=== PATIENT | female | born 2000 | race Two or more races ===

== ENCOUNTER 2024-12-28 19:58 | Emergency (ER) | payer OTHER ==
[~2024-12-28] VITALS: Ht 172.7 cm; Wt 56.8 kg
[2024-12-28] MEDS ORDERED: MORPHINE SULFATE INJ 2 MG/ml SYRG IM ONE (21:00)
[2024-12-28 21:28] LABS: Urine Bacteria None Seen /hpf (None Seen)
[2024-12-28 21:44] LABS: Basophils # (auto) 0 10 ^3/uL (0-0.2); Basophils % (auto) 0.3 % (0.0-2.0); Eosinophils # (auto) 0.1 10 ^3/uL (0-0.8); Eosinophils % (auto) 1.5 % (0.0-7.0); Hematocrit 43.7 % (36.0-46.0); Hemoglobin 14.9 g/dL (12.2-16.2); Lymphocytes % (auto) 33.2 % (10.0-50.0); Mean Corpuscular Hemoglobin 29.5 pg (28.0-32.0); Mean Corpuscular Hgb Conc. 34.1 g/dL (32.0-36.0); Mean Corpuscular Volume 86.3 fL (80.0-100.0); Monocytes # (auto) 0.6 10 ^3/uL (0-1.3); Monocytes % (auto) 6.4 % (0.0-12.0); Neutrophils # (auto) 5.3 10 ^3/uL (1.6-8.6); Neutrophils % (auto) 58.6 % (37.0-80.0); Nucleated Red Blood Cells % 0.1 %; Platelet Count (auto) 330 10^3/uL (140-450); Red Blood Cells 5.07 10^6/uL (4.0-5.20); Red Cell Distribution Width 12.9 % (11.8-14.3); White Blood Cell 9.1 10^3/uL (4.4-10.8)
[2024-12-28 21:51] LABS: Urine Amorphous Crystal FEW /hpf (None Seen); Urine Blood 3+ /uL (Negative); Urine Clarity Turbid (Clear); Urine Color Light-Orange (Yellow); Urine Mucus FEW (None Seen); Urine Protein, UAD TRACE (Negative); Urine Specific Gravity 1.026 (1.001-1.035); Urine Squamous Epithelial Cell FEW /hpf (<5); Urine Urobilinogen Normal (Negative); Urine WBC 11 /HPF (0-5)
[2024-12-28 22:02] LABS: Alanine Aminotransferase 10 U/L (7-40); Albumin 4.6 g/dL (3.2-4.8); Alkaline Phosphatase 48 U/L (46-116); Anion Gap 8 (5-15); Aspartate Aminotransferase 15 U/L (13-40); BUN/Creatinine Ratio 15.1 (10.0-20.0); Bilirubin, Total 0.5 mg/dL (0.2-1.0); Blood Urea Nitrogen 13 mg/dL (9-23); Calcium 9.8 mg/dL (8.7-10.4); Carbon Dioxide 26 mmol/L (20-31); Chloride 106 mmol/L (98-107); Glucose 92 mg/dL (74-106); Lipase 42 U/L (12-53); Potassium 3.5 mmol/L (3.5-5.1); Sodium 140 mmol/L (136-145); Total Protein 7.5 g/dL (5.7-8.2)
--- NOTE | 2024-12-28 22:10 | ED.PDOC ---
History of Present Illness HPI Comments Ms. Steele, a 24-year-old female past medical history significant for left inguinal hernia repair, otherwise unremarkable medical history, chronic irregular menstruation came from home with a new onset of midline pelvic pain, 7/10, dull, intermittent associated with blood clots for past 2-3 days. She went to [place] urgent care where urine and blood test -ve she was prompted to ED for further evaluation of pelvic exam. She is sexually active with can you 1 mL partner with last sexual activity in 5 days, but the pain seems unassociated with the sexual activities. She denies hitting history of pelvic trauma, fever, chills, pelvic discharge, STD, or any other gynecologic/OBEGYN complications. She tried over the counter pain medications with partial relief. Chief Complaint: Pelvic Pain Time Seen by MD: 20:01 Primary Care Provider: BEBE Reviewed Notes: Nurses Notes, Medications, Allergies Allergies: Coded Allergies: NO KNOWN ALLERGIES (Unverified , 12/28/24) Information Source: Patient Mode of Arrival: Ambulatory Severity: Mild Timing: Days Duration: Since onset, Intermittent Prehospital treatment: Pain Meds Location: Midline pelvic Quality dull, cramping Past Medical History Past Medical History (Other): As above Surgical History (Other): As above TALENT ACQUISITION SOURCER History: Denies all TALENT ACQUISITION SOURCER Hx, No Pertinent TALENT ACQUISITION SOURCER History AB no prior , irregular periods 2-3 months, last in October Family History Family History: Reviewed,noncontributory to illness Social History Smoker: Non-Smoker Alcohol: Denies ETOH Use Drugs: Denies Drug Use Lives In: Home Constitutional: denies: chills, diaphoresis, fatigue, fever, malaise, sweats, weakness, others EENTM: denies: blurred vision, double vision, ear bleeding, ear discharge, ear drainage, ear pain, ear ringing, eye pain, eye redness, hearing loss, mouth pain, mouth swelling, nasal discharge, nose bleeding, nose congestion, nose pain, photophobia, tearing, throat pain, throat swelling, voice changes, others Respiratory: denies: cough, hemoptysis, orthopnea, SOB at rest, shortness of breath, SOB with excertion, stridor, wheezing, others Cardiovascular: denies: chest pain, dizzy spells, diaphoresis, Dyspnea on exertion, edema, irregular heart beat, left arm pain, lightheadedness, palpi tations, PND, syncope, others Gastrointestinal: denies: abdomen distended, abdominal pain, blood streaked bowels, constipated, diarrhea, dysphagia, difficulty swallowing, hematemesis, melena, nausea, poor appetite, poor fluid intake, rectal bleeding, rectal pain, vomiting, others Genitourinary: reports: abnormal vagina bleeding, flank pain, pain, vagina discharge; denies: burning, dyspareunia, dysuria, frequency, hematuria, incontinence, , urgency, others Neurological: denies: dizziness, fainting, headache, left sided numbness, left sided weakness, numbness, paresthesia, pre-existing deficit, right sided numbness, right sided weakness, seizure, speech problems, tingling, tremors, weakness, others Musculoskeletal: denies: back pain, gout, joint pain, joint swelling, muscle pain, muscle stiffness, neck pain, others Integumetry: denies: bruises, change in color, change in hair/nails, dryness, laceration, lesions, lumps, rash, wounds, others Allergic/Immunocompromised: denies: Difficulty Healing, Frequent Infections, Hives, Itching, others Hematologic/Lymphatic: denies: anemia, blood clots, easy bleeding, easy bruising, swollen glands, others Endocrine: denies: excessive hunger, excessive sweating, excessive thirst, excessive urination, flushing, intolerance to cold, intolerance to heat, unexplained weight gain, unexplained weight loss, others Psychiatric: denies: anxiety, bipolar disorder, depression, hopeless, panic disorder, schizophrenia, sleepless, suicidal, others Physical Exam General Appearance: Mild Distress HEENT: Normal ENT Inspection (piercing ), Other (MultiplePiercing) Neck: Full Range of Motion, Non-Tender, Normal Inspection Respiratory: No Accessory Muscle Use, No Respiratory Distress, Normal Breath Sounds Cardiovascular: No Edema, No Murmur, No Gallop, Normal Peripheral Pulses, Regular Rate/Rhythm Breast Exam: Deferred Gastrointestinal: No Organomegaly, No Pulsatile Mass, Normal Bowel Sounds, Suprapubic, Tenderness Genitalia: Deferred Pelvic: Deferred, Other (We will plan to private with the help of a female tono honorio) Rectal: Deferred Extremities: Non-tender, No pedal edema Neurologic: Alert, No Motor Deficits, Normal Mood, No Sensory Deficits Cerebellar Function: Normal Reflexes: NOT DONE Skin: NOT DONE Lymphatic: NOT DONE Was a procedure done? Was a procedure done?: No Differential Dx Considerations may include: STD, UTI, , pelvic inflammatory disease, menometrorrhagea, ectopic , adnexal normality X-Ray, Labs, Meds, VS Vital Signs Date Time Temp Pulse Resp B/P (MAP) Pulse Ox O2 Delivery O2 Flow Rate FiO2 12/28/24 21:12 98.9 93 18 143/81 (101) 99 98.9 Lab Test 12/28/24 21:25 12/28/24 20:54 Range/Units White Blood Count 9.1 4.4-10.8 10^3/uL Red Blood Count 5.07 4.0-5.20 10^6/uL Hemoglobin 14.9 12.2-16.2 g/dL Hematocrit 43.7 36.0-46.0 % Mean Corpuscular Volume 86.3 80.0-100.0 fL Mean Corpuscular Hemoglobin 29.5 28.0-32.0 pg Mean Corpuscular Hemoglobin Concent 34.1 32.0-36.0 g/dL Red Cell Distribution Width 12.9 11.8-14.3 % Platelet Count 330 140-450 10^3/uL Mean Platelet Volume 8.1 6.9-10.8 fL Neutrophils (%) (Auto) 58.6 37.0-80.0 % Lymphocytes (%) (Auto) 33.2 10.0-50.0 % Monocytes (%) (Auto) 6.4 0.0-12.0 % Eosinophils (%) (Auto) 1.5 0.0-7.0 % Basophils (%) (Auto) 0.3 0.0-2.0 % Neutrophils # (Auto) 5.3 1.6-8.6 10 ^3/uL Lymphocytes # (Auto) 3.0 0.4-5.4 10 ^3/uL Monocytes # (Auto) 0.6 0-1.3 10 ^3/uL Eosinophils # (Auto) 0.1 0-0.8 10 ^3/uL Basophils # (Auto) 0 0-0.2 10 ^3/uL Nucleated Red Blood Cells 0.1 % Sodium Level Pending Potassium Level Pending Chloride Level Pending Carbon Dioxide Level Pending Anion Gap Pending Blood Urea Nitrogen Pending Creatinine Pending Glomerular Filtration Rate Calc Pending BUN/Creatinine Ratio Pending Serum Glucose Pending Calcium Level Pending Total Bilirubin Pending Aspartate Amino Transferase (AST) Pending Alanine Aminotransferase (ALT) Pending Alkaline Phosphatase Pending Total Protein Pending Albumin Pending Lipase Pending Urine Color Light-orange Yellow Urine Clarity Turbid H Clear Urine pH 8.0 5.0-9.0 Urine Specific Mal[place] 1.026 1.001-1.035 Urine Protein Trace H Negative Urine Ketones Negative Negative Urine Blood 3+ H Negative /uL Urine Nitrite Negative Negative Urine Bilirubin Negative Negative Urine Urobilinogen Normal Negative mg/dL Urine Leukocyte Esterase 1+ Negative /uL Urine RBC 132 0 - 4 /hpf Urine Microscopic WBC 11 H 0-5 /HPF Urine Squamous Epithelial Cells Few <5 /hpf Urine Triple Phosphate Crystals Few None Seen /hpf Urine Amorphous Crystals Few None Seen /hpf Urine Bacteria None seen None Seen /hpf Urine Mucus Few None Seen Urine Glucose Normal Normal mg/dL Urine Test Negative Negative Chlamydia trachomatis (JOAN) Pending Neisseria gonorrhoeae (JOAN) Pending Images Reviewed?: Images reviewed and evaluated by me Time of 1ST Reevaluation: 23:20 Reevaluation 1ST: Unchanged (-ve workup so far, hemodynamically stable, afebrile, HnH stable. ) Time of 2ND Reevaluation: 22:09 Reevaluation 2ND: Unchanged (morphine 1 mg IM, for pain control, -ve. stable discussed with Dr. Madden. Signed out to Dr. Madden. ) Patient Education/Counseling: Diagnosis, Treatment, Prognosis, Need For Follow Up Family Education/Counseling: No Family Present Sepsis Sepsis Reasesment Focused Exam Sepsis focused exam: focus exam completed, time: (negative) Departure 1 Departure Time of Disposition: 22:06 Impression: Primary Impression: STI (sexually transmitted infection) Additional Impressions: Pelvic pain UTI (urinary tract infection) Qualified Codes: N30.00 - Acute cystitis without hematuria Disposition: 30 STILL A PATIENT Condition: Fair Critical Care Note Critical Care Time?: No Stability Stability form required: No Heart Score Heart Score: Heart Score Response (Comments) Value History N/A 0 EKG N/A 0 Age N/A 0 Risk Factors N/A 0 Troponin N/A 0 Total 0 EZE MONZON RESIDENT Dec 28, 2024 22:10
--- NOTE | 2024-12-29 00:08 | DVH ---
BILATERAL RENAL ULTRASOUND CLINICAL HISTORY: CKD. R/O OBSTRUCTION COMPARISON: None TECHNIQUE: High-resolution real-time grayscale and color flow imaging is performed. FINDINGS: Right kidney: Measures 9.6 cm in length. Normal cortical thickness and echotexture. No hydronephrosis . Left kidney: Measures 10.7 cm in length. Normal cortical thickness and echotexture. No hydronephrosi s. Bladder: The bladder is underdistended. IMPRESSION: No hydronephrosis.
--- NOTE | 2024-12-29 00:24 | DVH ---
PELVIC ULTRASOUND WITH TRANSABDOMINAL IMAGING CLINICAL HISTORY: Pain. Evaluate for torsion. COMPARISON: None TECHNIQUE: Transabdominal grayscale, color-flow Doppler, and duplex Doppler was performed. FINDINGS: American Sign Language Interpreter notes that the patient refused transvaginal imaging. Uterus: The uterus measures 7.3 x 5.3 x 3.6 cm. Uterine myometrium is grossly unremarkable. Endometrium: Double thickness of the endometrial stripe measures 0.5 cm. Endometrial thickness is uni form. Right ovary measures 2.5 x 2.0 x 1.9 cm. Left ovary measures 4.9 x 2.3 x 3.1 cm. Both ovaries demonst rate dopplerable blood flow on spectral analysis. Free fluid: None visualized. IMPRESSION: Asymmetric enlargement of the LEFT ovary. This can be seen with edematous change. Although there is dopplerable arterial blood flow on spectral analysis at this time, LEFT ovarian torsion remains a con cern. Recommend gynecological consultation.
[2024-12-29 00:30] VITALS: PULSE 98; RESP 12; O2SAT 97
[2024-12-29] MEDS: cefTRIAXone 1GM/50ML D5W 50 ML IV ONE ×2 (01:03→12:09)
[2024-12-29] MEDS: MORPHINE SULFATE INJ 2 MG/ml SYRG IV ONE (01:05)
[2024-12-29 01:19] LABS: INR 1.08 (0.9-1.15); Partial Thromboplastin Time 27.3 SEC (24.5-34.5); Prothrombin Time 11.4 sec (9.3-11.8)
[2024-12-29 08:00] VITALS: PULSE 68; RESP 12; O2SAT 97
[2024-12-29] MEDS: HYDROcodone-ACET 5/325MG TAB PO ONE (11:12)
[2024-12-29] MEDS: SODIUM CHLORIDE 0.9% 1,000 ML IV ONE (12:09)
[2024-12-29 15:34] VITALS: BP 102/62; PULSE 89; RESP 12; TEMP 98.4; O2SAT 97
[2024-12-31 03:07] LABS: Chlamydia Trachomatis, NAA Negative (Negative); Neisseria gonorrhoeae, NAA Negative (Negative)
== END 2024-12-29 16:01 | disposition short-term general hospital (02) ==
LOC: ER 19:58
DX: N39.0 Urinary tract infection, site not specified (principal); A64 Unspecified sexually transmitted disease; Z98.890 Other specified postprocedural states
CPT/HCPCS: 36415; 76775; 76856; 80053; 81001; 81025; 83690; 85025; 85610; 85730; 86850; 86900; 86901; 87491; 87591; 96365; 96366; 96375; 99285; J0696; J2270